=== PATIENT | female | born 1970 | race African-American/Black ===

== ENCOUNTER 2016-07-01 02:17 | Inpatient (IN) | payer MEDICAID ==
[~2016-07-01] VITALS: Ht 160 cm; Wt 91.6 kg
[~2016-07-01 02:17] MED LIST: AMIT25TA9 PO; AMLO2.5T45 PO; ASPI-1035 PO; ATOR10TA69 PO; COLC0.6T66 PO; COR12 PO; DIGO250T81 PO; ENTRESTO PO; FURO80TA3 PO; ISOS30TA6 PO; LEVO125T8 PO; LOSA50TA20 PO; METF500T4 PO; POTA20TA82 PO; SPIR25TA4 PO
[2016-07-01] MEDS ORDERED: FUROSEMIDE 40MG/4ML VIAL IV STA (03:14)
[2016-07-01 03:34] LABS: BASOPHILS % 1.7 % (0.0-2.0); DIFFERENTIAL COMMENT 0; EOSINOPHILS % 7.2 % (0.0-5.0); HEMATOCRIT. 42.1 % (36.0-48.0); HEMOGLOBIN. 13.6 g/dL (12.0-16.0); LYMPHOCYTES % 16.7 % (20.0-50.0); MEAN CORPUSCULAR HEMOGLOBIN 27.2 pg (28.0-32.0); MEAN CORPUSCULAR HGB CONC 32.3 g/dL (31.0-37.0); MEAN CORPUSCULAR VOLUME 84.4 fL (81.0-99.0); MEAN PLATELET VOLUME 9.8 fl (7.4-10.4); MONOCYTES % 7.2 % (2.0-8.0); NEUTROPHILS % 67.2 % (40.0-76.0); PLATELET 153 x1000/uL (130-400); RED BLOOD CELL COUNT 4.99 mill/uL (4.2-5.4); RED CELL DISTRIBUTION WIDTH 17.9 % (11.6-14.6); WHITE BLOOD COUNT 3.8 x1000/uL (4.5-11.0)
[2016-07-01] MEDS ORDERED: MORPHINE SULFATE 4 MG/ML CPJ (NOT FOR IM USE) IV ONE (03:45)
[2016-07-01] MEDS ORDERED: ONDANSETRON HCL 4MG/2ML VIAL IV ONE (03:45)
[2016-07-01 03:46] LABS: ALANINE AMINOTRANSFERASE 28 IU/L (13-61); ALBUMIN 3.6 g/dL (3.4-5.0); ANION GAP 10; CALCIUM 9.2 mg/dL (8.5-10.1); CARBON DIOXIDE 32 mEq/L (21-32); CHLORIDE 103 mEq/L (98-107); INDEX HEMOLYSI 1 (1-3); INDEX ICTERIC 1 (1-4); INDEX LIPEMIC 1 (1-3); INR 1.1; NT PRO B-TYPE NATRIURETIC PEP 5008 pg/mL (5-125); PARTIAL THROMBOPLASTIN TIME 27.4 sec (24.0-34.0); PROTHROMBIN TIME 11.6 sec; UREA NITROGEN BLOOD 25 mg/dL (7-21); eGFR 49 mL/min (>60)
[2016-07-01] MEDS ORDERED: DIPHENHYDRAMINE 50MG/ML VIAL IV ONE (05:30)
[2016-07-01 08:38] VITALS: BP 145/89
[2016-07-01] MEDS ORDERED: GLIP10TA10 PO (09:47)
[2016-07-01] MEDS ORDERED: ELIQUIS PO (09:47)
[2016-07-01] MEDS ORDERED: ALLO300T2 PO (09:47)
[2016-07-01] MEDS ORDERED: AMIODARONE PO (09:47)
[2016-07-01] MEDS ORDERED: DIGO125T82 PO (09:47)
[2016-07-01] MEDS ORDERED: DILT120C2 PO (09:47)
[2016-07-01] MEDS ORDERED: DOCUSATE SODIUM 100MG CAPSULE PO PRN (10:30)
[2016-07-01] MEDS ORDERED: GUAIFENESIN 200MG/10ML SUGAR FREE UDC PO PRN (10:30)
[2016-07-01] MEDS ORDERED: NA PHOS,M-B/NA PHOS,DI-BA ENEMA 118ML PR PRN (10:30)
[2016-07-01] MEDS ORDERED: MAGNESIUM/ALUMINUM HYDROXIDE/SIMETHICONE 30ML UDC PO PRN (10:30)
[2016-07-01] MEDS ORDERED: ACETAMINOPHEN 325MG TABLET PO PRN (10:30)
[2016-07-01] MEDS ORDERED: ENOXAPARIN 40MG/0.4ML SYR SUBCUT SCH (10:30)
[2016-07-01] MEDS ORDERED: CLONIDINE 0.1MG TABLET PO PRN (10:30)
[2016-07-01] MEDS ORDERED: ENOXAPARIN 30MG/0.3ML SYR SUBCUT SCH (11:00)
[2016-07-01] MEDS ORDERED: METF500T4 PO (11:02)
[2016-07-01 12:00] VITALS: BP 127/83
[2016-07-01] MEDS: INSULIN LISPRO 100 UNITS/ML SUBCUT SCH ×3 (12:12→21:00)
[2016-07-01] MEDS: BLOOD SUGAR DIAGNOSTIC STRIP TEST SCH ×3 (12:12→21:00)
[2016-07-01] MEDS: ASPIRIN 81MG EC TABLET PO SCH (12:29)
[2016-07-01] MEDS: CARVEDILOL 12.5MG TABLET PO SCH ×2 (12:29→23:30)
[2016-07-01] MEDS: HYDROMORPHONE HCL/PF 2MG/ML CPJ IV PRN ×2 (12:37→21:20)
[2016-07-01] MEDS: GLIPIZIDE 10MG TABLET PO SCH (13:00)
[2016-07-01] MEDS: AMIODARONE HCL 200 MG TABLET PO SCH ×2 (13:57→21:08)
[2016-07-01 16:00] VITALS: BP 120/81
[2016-07-01 16:04] LABS: ANION GAP 13; CALCIUM 9.4 mg/dL (8.5-10.1); CARBON DIOXIDE 29 mEq/L (21-32); CHLORIDE 101 mEq/L (98-107); INDEX HEMOLYSI 1 (1-3); INDEX ICTERIC 1 (1-4); INDEX LIPEMIC 1 (1-3); TROPONIN I < 0.02 ng/mL (0.00-0.04); UREA NITROGEN BLOOD 26 mg/dL (7-21); eGFR 53 mL/min (>60)
[2016-07-01] MEDS ORDERED: ENTRESTO PO SCH (17:00)
[2016-07-01] MEDS: IPRATROPIUM/ALBUTEROL 0.5-3(2.5)MG/3ML NEB INH SCH ×2 (17:09→20:55)
[2016-07-01] MEDS: ALLOPURINOL 300 MG TABLET PO SCH (17:44)
[2016-07-01] MEDS: DIGOXIN 125MCG TABLET PO SCH (17:44)
[2016-07-01] MEDS: APIXABAN 2.5 MG TABLET PO SCH (17:45)
[2016-07-01] MEDS: METFORMIN HCL 500MG TABLET PO SCH (17:45)
[2016-07-01] MEDS: FUROSEMIDE 80MG TABLET PO SCH (17:45)
[2016-07-01 20:00] VITALS: BP 108/65
[2016-07-01] MEDS: LOSARTAN POTASSIUM 50 MG TABLET PO SCH (21:00)
[2016-07-01] MEDS: DIPHENHYDRAMINE 50MG/ML VIAL IV PRN (23:03)
[2016-07-02 00:01] VITALS: BP 105/60
[2016-07-02] MEDS: IPRATROPIUM/ALBUTEROL 0.5-3(2.5)MG/3ML NEB INH SCH ×4 (02:22→20:38)
[2016-07-02 04:00] VITALS: BP 109/73
[2016-07-02] MEDS: DIPHENHYDRAMINE 50MG/ML VIAL IV PRN (05:51)
[2016-07-02] MEDS: HYDROMORPHONE HCL/PF 2MG/ML CPJ IV PRN (05:52)
[2016-07-02 07:02] LABS: BASOPHILS % 1.5 % (0.0-2.0); DIFFERENTIAL COMMENT 0; EOSINOPHILS % 6.4 % (0.0-5.0); HEMATOCRIT. 41.2 % (36.0-48.0); HEMOGLOBIN. 13.2 g/dL (12.0-16.0); LYMPHOCYTES % 21.2 % (20.0-50.0); MEAN CORPUSCULAR HEMOGLOBIN 27.2 pg (28.0-32.0); MEAN CORPUSCULAR VOLUME 84.8 fL (81.0-99.0); MEAN PLATELET VOLUME 10.8 fl (7.4-10.4); MONOCYTES % 9.2 % (2.0-8.0); NEUTROPHILS % 61.7 % (40.0-76.0); PLATELET 147 x1000/uL (130-400); RED BLOOD CELL COUNT 4.86 mill/uL (4.2-5.4); RED CELL DISTRIBUTION WIDTH 18.2 % (11.6-14.6); WHITE BLOOD COUNT 4.4 x1000/uL (4.5-11.0)
[2016-07-02 07:24] LABS: CHLORIDE 100 mEq/L (98-107); INDEX HEMOLYSI 1 (1-3); INDEX ICTERIC 1 (1-4); INDEX LIPEMIC 1 (1-3)
[2016-07-02 07:40] LABS: ALANINE AMINOTRANSFERASE 24 IU/L (13-61); ALBUMIN 3.3 g/dL (3.4-5.0); ANION GAP 17; CALCIUM 8.8 mg/dL (8.5-10.1); CARBON DIOXIDE 23 mEq/L (21-32); HDL CHOLESTEROL 50 mg/dL (40-59); LDL CHOLESTEROL 74 mg/dL (5-100); T4 FREE 1.37 ng/dL (0.76-1.46); TRIGLYCERIDE 138 mg/dL (0-150); UREA NITROGEN BLOOD 34 mg/dL (7-21); eGFR 36 mL/min (>60)
[2016-07-02 08:00] VITALS: BP 115/84
[2016-07-02] MEDS: BLOOD SUGAR DIAGNOSTIC STRIP TEST SCH ×4 (08:05→21:26)
[2016-07-02] MEDS: INSULIN LISPRO 100 UNITS/ML SUBCUT SCH ×4 (08:10→21:00)
[2016-07-02] MEDS: APIXABAN 2.5 MG TABLET PO SCH (09:16)
[2016-07-02] MEDS: AMIODARONE HCL 200 MG TABLET PO SCH ×2 (09:16→21:00)
[2016-07-02] MEDS: ALLOPURINOL 300 MG TABLET PO SCH ×2 (09:16→17:43)
[2016-07-02] MEDS: ASPIRIN 81MG EC TABLET PO SCH (09:16)
[2016-07-02] MEDS: METFORMIN HCL 500MG TABLET PO SCH (09:16)
[2016-07-02] MEDS: LOSARTAN POTASSIUM 50 MG TABLET PO SCH ×2 (09:17→21:00)
[2016-07-02] MEDS: FUROSEMIDE 80MG TABLET PO SCH ×2 (09:17→17:43)
[2016-07-02] MEDS: DILTIAZEM HCL 120MG CAPSULE CD 24HR PO SCH (09:18)
[2016-07-02] MEDS: GLIPIZIDE 10MG TABLET PO SCH (09:18)
[2016-07-02] MEDS: COLCHICINE 0.6MG TABLET PO SCH (09:19)
[2016-07-02] MEDS: LEVOTHYROXINE SODIUM 125MCG TABLET PO SCH (09:19)
[2016-07-02 12:00] VITALS: BP 124/79
[2016-07-02] MEDS: CARVEDILOL 12.5MG TABLET PO SCH ×2 (12:42→22:48)
[2016-07-02] MEDS: DEXTROSE 50% WATER 50ML SYRINGE IV PRN (15:32)
[2016-07-02 15:41] LABS: CLARITY URINE CLEAR (CLEAR); COLOR URINE YELLOW (YELLOW); GLUCOSE URINE NEGATIVE (NEGATIVE); KETONES URINE NEGATIVE (NEGATIVE); LEUKOCYTE ESTERASE URINE NEGATIVE (NEGATIVE); NITRITE URINE NEGATIVE (NEGATIVE); OCCULT BLOOD URINE NEGATIVE (NEGATIVE); PROTEIN URINE 1+ (NEGATIVE); SPECIFIC GRAVITY URINE 1.015 (1.005-1.030); UROBILINOGEN URINE 0.2 E.U./dL (0.2-1.0)
[2016-07-02 16:00] VITALS: BP 104/62
[2016-07-02] MEDS: DIGOXIN 125MCG TABLET PO SCH (17:43)
[2016-07-02 18:42] LABS: BACTERIA URINE 2+
[2016-07-02 18:43] LABS: RBC URINE 0-2 /hpf (0-2); SQUAMOUS EPITHELIAL CELL URINE FEW /lpf (RARE/1+); WBC URINE 0-2 /hpf (0-2)
[2016-07-02 20:00] VITALS: BP 107/60
[2016-07-02] MEDS: APIXABAN 5 MG TABLET PO SCH (21:26)
[2016-07-03] VITALS: BP 118/79
[2016-07-03] MEDS: IPRATROPIUM/ALBUTEROL 0.5-3(2.5)MG/3ML NEB INH SCH ×4 (01:05→20:26)
[2016-07-03] MEDS: LORAZEPAM 2MG/ML CPJ IV PRN ×2 (02:57→20:39)
[2016-07-03 04:00] VITALS: BP 107/66
[2016-07-03] MEDS: DEXTROSE 50% WATER 50ML SYRINGE IV PRN (05:38)
[2016-07-03] MEDS: BLOOD SUGAR DIAGNOSTIC STRIP TEST SCH ×4 (06:08→20:46)
[2016-07-03] MEDS: GLIPIZIDE 10MG TABLET PO SCH (07:40)
[2016-07-03] MEDS: INSULIN LISPRO 100 UNITS/ML SUBCUT SCH ×4 (07:59→20:46)
[2016-07-03 08:00] VITALS: BP 100/57
[2016-07-03] MEDS: DILTIAZEM HCL 120MG CAPSULE CD 24HR PO SCH (09:00)
[2016-07-03] MEDS: LOSARTAN POTASSIUM 50 MG TABLET PO SCH ×2 (09:00→20:38)
[2016-07-03] MEDS: ALLOPURINOL 300 MG TABLET PO SCH ×2 (09:08→18:29)
[2016-07-03] MEDS: COLCHICINE 0.6MG TABLET PO SCH (09:08)
[2016-07-03] MEDS: FUROSEMIDE 80MG TABLET PO SCH ×2 (09:09→18:29)
[2016-07-03] MEDS: LEVOTHYROXINE SODIUM 125MCG TABLET PO SCH (09:09)
[2016-07-03] MEDS: AMIODARONE HCL 200 MG TABLET PO SCH ×2 (09:09→20:37)
[2016-07-03] MEDS: ASPIRIN 81MG EC TABLET PO SCH (09:09)
[2016-07-03] MEDS: APIXABAN 5 MG TABLET PO SCH ×2 (09:09→20:37)
[2016-07-03] MEDS: HYDROMORPHONE HCL/PF 2MG/ML CPJ IV PRN (10:14)
[2016-07-03 10:50] LABS: BASOPHILS % 1.2 % (0.0-2.0); EOSINOPHILS % 6.7 % (0.0-5.0); HEMOGLOBIN. 13.2 g/dL (12.0-16.0); LYMPHOCYTES % 18.7 % (20.0-50.0); MEAN CORPUSCULAR HEMOGLOBIN 27.2 pg (28.0-32.0); MEAN CORPUSCULAR HGB CONC 32.1 g/dL (31.0-37.0); MEAN CORPUSCULAR VOLUME 84.8 fL (81.0-99.0); MEAN PLATELET VOLUME 11.2 fl (7.4-10.4); MONOCYTES % 8.2 % (2.0-8.0); NEUTROPHILS % 65.2 % (40.0-76.0); PLATELET 143 x1000/uL (130-400); RED BLOOD CELL COUNT 4.84 mill/uL (4.2-5.4); RED CELL DISTRIBUTION WIDTH 18.1 % (11.6-14.6); WHITE BLOOD COUNT 3.3 x1000/uL (4.5-11.0)
[2016-07-03 10:52] LABS: DIFFERENTIAL COMMENT 1
[2016-07-03 11:00] LABS: ADD RBC MORPHOLOGY YES
[2016-07-03 11:55] LABS: ANISOCYTOSIS 1+
[2016-07-03 12:00] VITALS: BP 132/82
[2016-07-03] MEDS: CARVEDILOL 12.5MG TABLET PO SCH ×2 (12:14→23:30)
[2016-07-03 12:32] LABS: CALCIUM 8.9 mg/dL (8.5-10.1)
[2016-07-03 16:00] VITALS: BP 100/62
[2016-07-03] MEDS: DIGOXIN 125MCG TABLET PO SCH (18:29)
[2016-07-03 20:00] VITALS: BP 134/92
[2016-07-04] VITALS: BP 123/69
[2016-07-04] MEDS: HYDROMORPHONE HCL/PF 2MG/ML CPJ IV PRN ×3 (00:42→17:14)
[2016-07-04] MEDS: DIPHENHYDRAMINE 50MG/ML VIAL IV PRN ×3 (01:30→19:01)
[2016-07-04] MEDS: IPRATROPIUM/ALBUTEROL 0.5-3(2.5)MG/3ML NEB INH SCH ×3 (01:45→22:20)
[2016-07-04 04:00] VITALS: BP 110/72
[2016-07-04 05:52] LABS: BASOPHILS % 0.3 % (0.0-2.0); DIFFERENTIAL COMMENT 0; EOSINOPHILS % 8.8 % (0.0-5.0); HEMATOCRIT. 38.5 % (36.0-48.0); HEMOGLOBIN. 12.5 g/dL (12.0-16.0); LYMPHOCYTES % 18.6 % (20.0-50.0); MEAN CORPUSCULAR HEMOGLOBIN 27.1 pg (28.0-32.0); MEAN CORPUSCULAR HGB CONC 32.5 g/dL (31.0-37.0); MEAN CORPUSCULAR VOLUME 83.4 fL (81.0-99.0); MEAN PLATELET VOLUME 10.7 fl (7.4-10.4); NEUTROPHILS % 62.3 % (40.0-76.0); PLATELET 159 x1000/uL (130-400); RED BLOOD CELL COUNT 4.62 mill/uL (4.2-5.4); RED CELL DISTRIBUTION WIDTH 17.6 % (11.6-14.6); WHITE BLOOD COUNT 3.4 x1000/uL (4.5-11.0)
[2016-07-04] MEDS: BLOOD SUGAR DIAGNOSTIC STRIP TEST SCH ×4 (06:11→21:39)
[2016-07-04] MEDS: GLIPIZIDE 10MG TABLET PO SCH (07:40)
[2016-07-04 08:00] VITALS: BP 113/91
[2016-07-04] MEDS: INSULIN LISPRO 100 UNITS/ML SUBCUT SCH ×4 (08:10→21:00)
[2016-07-04] MEDS: AMIODARONE HCL 200 MG TABLET PO SCH ×2 (09:19→21:34)
[2016-07-04] MEDS: ALLOPURINOL 300 MG TABLET PO SCH ×2 (09:20→17:33)
[2016-07-04] MEDS: APIXABAN 5 MG TABLET PO SCH ×2 (09:20→21:32)
[2016-07-04] MEDS: FUROSEMIDE 80MG TABLET PO SCH (09:20)
[2016-07-04] MEDS: COLCHICINE 0.6MG TABLET PO SCH (09:20)
[2016-07-04] MEDS: LEVOTHYROXINE SODIUM 125MCG TABLET PO SCH (09:21)
[2016-07-04] MEDS: DILTIAZEM HCL 120MG CAPSULE CD 24HR PO SCH (09:21)
[2016-07-04] MEDS: ASPIRIN 81MG EC TABLET PO SCH (09:22)
[2016-07-04] MEDS: LOSARTAN POTASSIUM 50 MG TABLET PO SCH ×2 (09:23→21:32)
[2016-07-04 12:00] VITALS: BP 113/90
[2016-07-04] MEDS: CARVEDILOL 12.5MG TABLET PO SCH ×2 (13:10→23:21)
[2016-07-04 16:00] VITALS: BP 98/67
[2016-07-04] MEDS ORDERED: FUROSEMIDE 40MG/4ML VIAL IVP SCH (17:00)
[2016-07-04] MEDS: METOLAZONE 2.5MG TABLET PO SCH ×2 (17:00→17:12)
[2016-07-04] MEDS: DIGOXIN 125MCG TABLET PO SCH (17:12)
[2016-07-04 20:00] VITALS: BP 137/90
[2016-07-04] MEDS: LORAZEPAM 2MG/ML CPJ IV PRN (23:26)
[2016-07-05] VITALS: BP 119/78
[2016-07-05] MEDS: IPRATROPIUM/ALBUTEROL 0.5-3(2.5)MG/3ML NEB INH SCH ×2 (01:31→19:40)
[2016-07-05 04:00] VITALS: BP 104/61
[2016-07-05] MEDS: BLOOD SUGAR DIAGNOSTIC STRIP TEST SCH ×4 (05:53→20:02)
[2016-07-05] MEDS: HYDROMORPHONE HCL/PF 2MG/ML CPJ IV PRN ×3 (06:20→19:17)
[2016-07-05 06:45] LABS: CALCIUM 9.1 mg/dL (8.5-10.1); MAGNESIUM 2.2 mg/dL (1.8-2.4)
[2016-07-05 06:50] LABS: BASOPHILS % 1.8 % (0.0-2.0); EOSINOPHILS % 9.6 % (0.0-5.0); HEMATOCRIT. 39.9 % (36.0-48.0); HEMOGLOBIN. 12.8 g/dL (12.0-16.0); LYMPHOCYTES % 17.1 % (20.0-50.0); MEAN CORPUSCULAR HEMOGLOBIN 27.3 pg (28.0-32.0); MEAN CORPUSCULAR HGB CONC 32.1 g/dL (31.0-37.0); MEAN CORPUSCULAR VOLUME 84.9 fL (81.0-99.0); MEAN PLATELET VOLUME 10.9 fl (7.4-10.4); MONOCYTES % 12.4 % (2.0-8.0); NEUTROPHILS % 59.1 % (40.0-76.0); PLATELET 153 x1000/uL (130-400); RED CELL DISTRIBUTION WIDTH 18.6 % (11.6-14.6); WHITE BLOOD COUNT 3.6 x1000/uL (4.5-11.0)
[2016-07-05 08:00] VITALS: BP 116/78
[2016-07-05] MEDS: INSULIN LISPRO 100 UNITS/ML SUBCUT SCH ×4 (08:10→20:02)
[2016-07-05] MEDS: LEVOTHYROXINE SODIUM 125MCG TABLET PO SCH (09:00)
[2016-07-05] MEDS: FUROSEMIDE 40MG/4ML VIAL IVP SCH (09:04)
[2016-07-05] MEDS: AMIODARONE HCL 200 MG TABLET PO SCH ×2 (09:05→20:13)
[2016-07-05] MEDS: DILTIAZEM HCL 120MG CAPSULE CD 24HR PO SCH (09:05)
[2016-07-05] MEDS: GLIPIZIDE 10MG TABLET PO SCH (09:05)
[2016-07-05] MEDS: APIXABAN 5 MG TABLET PO SCH ×2 (09:05→20:12)
[2016-07-05] MEDS: ALLOPURINOL 300 MG TABLET PO SCH ×2 (09:05→17:07)
[2016-07-05] MEDS: LOSARTAN POTASSIUM 50 MG TABLET PO SCH ×2 (09:05→20:05)
[2016-07-05] MEDS: METOLAZONE 2.5MG TABLET PO SCH ×2 (09:05→17:07)
[2016-07-05] MEDS: ASPIRIN 81MG EC TABLET PO SCH (09:05)
[2016-07-05 09:09] LABS: COMPLEMENT C3 166 mg/dL (82-167); COMPLEMENT C4 33 mg/dL (14-44)
[2016-07-05] MEDS: CARVEDILOL 12.5MG TABLET PO SCH ×2 (11:58→22:51)
[2016-07-05 12:00] VITALS: BP 116/70
[2016-07-05 13:12] LABS: ATYPICAL P-ANCA <1:20 titer (Neg:<1:20); CYTOPLASMIC C-ANCA <1:20 titer (Neg:<1:20); PERINUCLEAR P-ANCA <1:20 titer (Neg:<1:20)
[2016-07-05] MEDS: DIPHENHYDRAMINE 50MG/ML VIAL IV PRN (14:11)
[2016-07-05 16:00] VITALS: BP 101/61
[2016-07-05] MEDS: DIGOXIN 125MCG TABLET PO SCH (17:07)
[2016-07-05 17:21] LABS: ANTI-NUCLEAR ANTIBODIES DIRECT Negative (Negative)
[2016-07-05 20:00] VITALS: BP 119/68
[2016-07-06] VITALS: BP 130/87
[2016-07-06] MEDS: IPRATROPIUM/ALBUTEROL 0.5-3(2.5)MG/3ML NEB INH SCH ×3 (01:45→20:40)
[2016-07-06] MEDS: HYDROMORPHONE HCL/PF 2MG/ML CPJ IV PRN ×3 (01:46→17:49)
[2016-07-06 04:00] VITALS: BP 107/66
[2016-07-06] MEDS: DIPHENHYDRAMINE 50MG/ML VIAL IV PRN ×3 (04:43→19:42)
[2016-07-06 07:32] LABS: BASOPHILS % 1.5 % (0.0-2.0); DIFFERENTIAL COMMENT 0; EOSINOPHILS % 9.5 % (0.0-5.0); HEMATOCRIT. 38.9 % (36.0-48.0); HEMOGLOBIN. 12.6 g/dL (12.0-16.0); LYMPHOCYTES % 17.6 % (20.0-50.0); MEAN CORPUSCULAR HEMOGLOBIN 27.3 pg (28.0-32.0); MEAN CORPUSCULAR HGB CONC 32.3 g/dL (31.0-37.0); MEAN CORPUSCULAR VOLUME 84.6 fL (81.0-99.0); MEAN PLATELET VOLUME 10.6 fl (7.4-10.4); MONOCYTES % 11.6 % (2.0-8.0); NEUTROPHILS % 59.8 % (40.0-76.0); PLATELET 152 x1000/uL (130-400); RED CELL DISTRIBUTION WIDTH 18.1 % (11.6-14.6); WHITE BLOOD COUNT 3.6 x1000/uL (4.5-11.0)
[2016-07-06] MEDS: BLOOD SUGAR DIAGNOSTIC STRIP TEST SCH ×4 (07:40→21:16)
[2016-07-06] MEDS: INSULIN LISPRO 100 UNITS/ML SUBCUT SCH ×4 (07:50→21:00)
[2016-07-06 08:00] VITALS: BP 124/82
[2016-07-06 08:22] LABS: CALCIUM 9.1 mg/dL (8.5-10.1); MAGNESIUM 2.3 mg/dL (1.8-2.4)
[2016-07-06 08:29] LABS: DIGOXIN 0.8 ng/mL (0.9-2.0)
[2016-07-06] MEDS: LEVOTHYROXINE SODIUM 125MCG TABLET PO SCH (08:33)
[2016-07-06] MEDS: APIXABAN 5 MG TABLET PO SCH ×2 (08:33→21:14)
[2016-07-06] MEDS: ALLOPURINOL 300 MG TABLET PO SCH ×2 (08:33→17:24)
[2016-07-06] MEDS: AMIODARONE HCL 200 MG TABLET PO SCH ×2 (08:33→21:00)
[2016-07-06] MEDS: LOSARTAN POTASSIUM 50 MG TABLET PO SCH ×2 (08:33→21:00)
[2016-07-06] MEDS: FUROSEMIDE 40MG/4ML VIAL IVP SCH (08:33)
[2016-07-06] MEDS: DILTIAZEM HCL 120MG CAPSULE CD 24HR PO SCH (08:34)
[2016-07-06] MEDS: METOLAZONE 2.5MG TABLET PO SCH ×2 (08:34→17:24)
[2016-07-06] MEDS: ASPIRIN 81MG EC TABLET PO SCH (08:34)
[2016-07-06] MEDS: GLIPIZIDE 10MG TABLET PO SCH (08:34)
[2016-07-06] MEDS: CARVEDILOL 12.5MG TABLET PO SCH ×2 (11:27→23:30)
[2016-07-06 12:00] VITALS: BP 129/85
[2016-07-06 13:18] LABS: ANTI-MYELOPEROXIDASE AB < 9.0 U/mL (0.0-9.0); ANTI-PROTEINASE 3 ABS < 3.5 U/mL (0.0-3.5)
[2016-07-06 16:00] VITALS: BP 128/79
[2016-07-06] MEDS: DIGOXIN 125MCG TABLET PO SCH (17:24)
[2016-07-06] MEDS: METFORMIN HCL 500MG TABLET PO SCH (17:24)
[2016-07-06 20:00] VITALS: BP 112/66
[2016-07-06] MEDS: FUROSEMIDE 20MG TABLET PO SCH (21:14)
[2016-07-07 00:11] VITALS: BP 119/66
[2016-07-07] MEDS: IPRATROPIUM/ALBUTEROL 0.5-3(2.5)MG/3ML NEB INH SCH ×2 (02:12→07:31)
[2016-07-07 04:00] VITALS: BP 131/78
[2016-07-07] MEDS: HYDROMORPHONE HCL/PF 2MG/ML CPJ IV PRN (05:13)
[2016-07-07] MEDS: DIPHENHYDRAMINE 50MG/ML VIAL IV PRN (05:14)
[2016-07-07 06:35] LABS: BASOPHILS % 1.3 % (0.0-2.0); EOSINOPHILS % 7.9 % (0.0-5.0); HEMATOCRIT. 38.4 % (36.0-48.0); HEMOGLOBIN. 12.5 g/dL (12.0-16.0); LYMPHOCYTES % 16.1 % (20.0-50.0); MEAN CORPUSCULAR HEMOGLOBIN 27.5 pg (28.0-32.0); MEAN CORPUSCULAR HGB CONC 32.5 g/dL (31.0-37.0); MEAN CORPUSCULAR VOLUME 84.6 fL (81.0-99.0); MONOCYTES % 11.7 % (2.0-8.0); PLATELET 145 x1000/uL (130-400); RED BLOOD CELL COUNT 4.54 mill/uL (4.2-5.4); RED CELL DISTRIBUTION WIDTH 18.4 % (11.6-14.6); WHITE BLOOD COUNT 4.6 x1000/uL (4.5-11.0)
[2016-07-07 06:59] LABS: CALCIUM 9.1 mg/dL (8.5-10.1)
[2016-07-07] MEDS: BLOOD SUGAR DIAGNOSTIC STRIP TEST SCH (07:40)
[2016-07-07 08:00] VITALS: BP 107/70
[2016-07-07] MEDS: INSULIN LISPRO 100 UNITS/ML SUBCUT SCH (08:10)
[2016-07-07] MEDS: METOLAZONE 2.5MG TABLET PO SCH (08:32)
[2016-07-07] MEDS: METFORMIN HCL 500MG TABLET PO SCH (08:33)
[2016-07-07] MEDS: AMIODARONE HCL 200 MG TABLET PO SCH (08:33)
[2016-07-07] MEDS: LEVOTHYROXINE SODIUM 125MCG TABLET PO SCH (08:33)
[2016-07-07] MEDS: ALLOPURINOL 300 MG TABLET PO SCH (08:33)
[2016-07-07] MEDS: APIXABAN 5 MG TABLET PO SCH (08:33)
[2016-07-07] MEDS: FUROSEMIDE 20MG TABLET PO SCH (08:33)
[2016-07-07] MEDS: ASPIRIN 81MG EC TABLET PO SCH (08:34)
[2016-07-07] MEDS: GLIPIZIDE 10MG TABLET PO SCH (08:34)
[2016-07-07] MEDS: LOSARTAN POTASSIUM 50 MG TABLET PO SCH (09:00)
[2016-07-07] MEDS: DILTIAZEM HCL 120MG CAPSULE CD 24HR PO SCH (09:00)
[2016-07-07 11:10] VITALS: BP 107/70
[2016-07-07 12:00] VITALS: BP 108/67
== END 2016-07-07 13:05 | disposition home or self-care (01) | DRG 194 ==
LOC: ER 02:17 → 7WST 05:37
PROVIDERS: ADMIT Internal Medicine; ATTEND Internal Medicine
DX: I13.0 Hypertensive heart and chronic kidney disease with heart failure and stage 1 through stage 4 chronic kidney disease, or unspecified chronic kidney disease (principal); J96.00 Acute respiratory failure, unspecified whether with hypoxia or hypercapnia; N17.9 Acute kidney failure, unspecified; E46 Unspecified protein-calorie malnutrition; I42.0 Dilated cardiomyopathy; I48.2 Chronic atrial fibrillation; I50.23 Acute on chronic systolic (congestive) heart failure; E11.21 Type 2 diabetes mellitus with diabetic nephropathy; E11.42 Type 2 diabetes mellitus with diabetic polyneuropathy; E11.22 Type 2 diabetes mellitus with diabetic chronic kidney disease; E03.9 Hypothyroidism, unspecified; E78.5 Hyperlipidemia, unspecified; E87.6 Hypokalemia; N18.9 Chronic kidney disease, unspecified; I27.2 Other secondary pulmonary hypertension; M10.9 Gout, unspecified; Z95.810 Presence of automatic (implantable) cardiac defibrillator; Z68.35 Body mass index [BMI] 35.0-35.9, adult; Z79.82 Long term (current) use of aspirin; Z79.01 Long term (current) use of anticoagulants; Z79.899 Other long term (current) drug therapy; Z82.49 Family history of ischemic heart disease and other diseases of the circulatory system
CPT/HCPCS: 36415; 71010; 76770; 80048; 80053; 80061; 80162; 81001; 82962; 83520; 83735; 83880; 84439; 84443; 84484; 85025; 85610; 85730; 86038; 86160; 86256; 93005; 94640; 94664; 96374; 96375; 99285; C1893; J1170; J1200; J1650; J1940; J2060; J2270; J2405; J7620

== ENCOUNTER → 2016-07-18 | Outpatient (CLI) | payer MEDICAID ==
[~2016-07-18] VITALS: Ht 160 cm; Wt 86.2 kg
[~2016-07-18] MED LIST changes: +ALLO300T2 PO; +AMIODARONE PO; -AMIT25TA9 PO; -AMLO2.5T45 PO; -ASPI-1035 PO; -ATOR10TA69 PO; +DIGO125T82 PO; -DIGO250T81 PO; +DILT120C2 PO; +ELIQUIS PO; -ENTRESTO PO; +FENTANYL CITRATE/PF 50MCG/ML 2ML VIAL ONE; +GLIP10TA10 PO; +HYDROMORPHONE HCL/PF 2MG/ML CPJ IV PRN; -ISOS30TA6 PO; +LABETALOL HCL 20MG/4ML CARPUJECT IV PRN; +LIDOCAINE HCL 1% 20ML VIAL (Pyxis) INJ ONE; +MEPERIDINE HCL/PF 25MG/ML CPJ IV PRN; +MIDAZOLAM HCL 2 MG/2 ML VIAL ONE; +ONDANSETRON HCL 4MG/2ML VIAL IV PRN; +PROPOFOL 200MG/20ML VIAL IV ONE; -SPIR25TA4 PO
== END | disposition home or self-care (01) ==
LOC: CARD 09:00
PROVIDERS: ATTEND Internal Medicine Clinical Cardiac Electrophysiology
DX: I48.1 Persistent atrial fibrillation (principal); I42.0 Dilated cardiomyopathy; I50.22 Chronic systolic (congestive) heart failure
CPT/HCPCS: 93005; J2250; J2704; J3010; J3490

== ENCOUNTER 2016-10-21 06:37 | Inpatient (IN) | payer MEDICAID ==
[~2016-10-21] VITALS: Ht 162.6 cm; Wt 102.1 kg
[~2016-10-21 06:37] MED LIST changes: -DIGO125T82 PO; -DILT120C2 PO; -FENTANYL CITRATE/PF 50MCG/ML 2ML VIAL ONE; -HYDROMORPHONE HCL/PF 2MG/ML CPJ IV PRN; -LABETALOL HCL 20MG/4ML CARPUJECT IV PRN; -LIDOCAINE HCL 1% 20ML VIAL (Pyxis) INJ ONE; -MEPERIDINE HCL/PF 25MG/ML CPJ IV PRN; -MIDAZOLAM HCL 2 MG/2 ML VIAL ONE; -ONDANSETRON HCL 4MG/2ML VIAL IV PRN; -PROPOFOL 200MG/20ML VIAL IV ONE
[2016-10-21] MEDS ORDERED: MORPHINE SULFATE 4 MG/ML CPJ (NOT FOR IM USE) IV STA (07:07)
[2016-10-21 07:23] LABS: BASOPHILS % 1.1 % (0.0-2.0); EOSINOPHILS % 3.7 % (0.0-5.0); HEMATOCRIT. 36.1 % (36.0-48.0); HEMOGLOBIN. 11.6 g/dL (12.0-16.0); LYMPHOCYTES % 12.7 % (20.0-50.0); MEAN CORPUSCULAR HEMOGLOBIN 28.3 pg (28.0-32.0); MEAN CORPUSCULAR VOLUME 87.5 fL (81.0-99.0); MEAN PLATELET VOLUME 9.6 fl (7.4-10.4); MONOCYTES % 7.1 % (2.0-8.0); NEUTROPHILS % 75.4 % (40.0-76.0); PLATELET 209 x1000/uL (130-400); RED BLOOD CELL COUNT 4.12 mill/uL (4.2-5.4); RED CELL DISTRIBUTION WIDTH 16.9 % (11.6-14.6)
[2016-10-21 07:30] LABS: INR 1.1; PROTHROMBIN TIME 11.7 sec
[2016-10-21 07:36] LABS: CARBON DIOXIDE 30 mEq/L (21-32); CHLORIDE 101 mEq/L (98-107)
[2016-10-21 07:40] LABS: HCG SCREEN NEGATIVE
[2016-10-21 10:22] LABS: TROPONIN I < 0.02 ng/mL (0.00-0.04)
[2016-10-21] MEDS ORDERED: FUROSEMIDE 40MG/4ML VIAL IVP ONE (11:30)
[2016-10-21 13:15] VITALS: BP 124/78
[2016-10-21 13:55] VITALS: BP 123/92
[2016-10-21] MEDS ORDERED: FUROSEMIDE 40MG/4ML VIAL IVP SCH (14:30)
[2016-10-21] MEDS ORDERED: ACETAMINOPHEN 325MG TABLET PO PRN (14:30)
[2016-10-21] MEDS ORDERED: ONDANSETRON HCL 4MG/2ML VIAL IV PRN (14:30)
[2016-10-21] MEDS: DEXTROSE 50% WATER 50ML SYRINGE IV PRN (15:09)
[2016-10-21 16:05] VITALS: BP 121/87
[2016-10-21] MEDS ORDERED: COLCHICINE 0.6MG TABLET PO NR ×2 (16:30→17:30)
[2016-10-21] MEDS: MORPHINE SULFATE 2 MG/ML CPJ (NOT FOR IM USE) IV PRN (16:49)
[2016-10-21] MEDS: ALLOPURINOL 300 MG TABLET PO SCH (17:00)
[2016-10-21] MEDS: INSULIN LISPRO 100 UNITS/ML SUBCUT SCH ×2 (17:51→21:00)
[2016-10-21] MEDS: BLOOD SUGAR DIAGNOSTIC STRIP TEST SCH ×2 (17:51→21:13)
[2016-10-21] MEDS: AMIODARONE HCL 200 MG TABLET PO SCH (17:59)
[2016-10-21] MEDS: LOSARTAN POTASSIUM 50 MG TABLET PO SCH (18:00)
[2016-10-21] MEDS: APIXABAN 5 MG TABLET PO SCH (18:00)
[2016-10-21 20:00] VITALS: BP 108/62
[2016-10-21] MEDS: CARVEDILOL 12.5MG TABLET PO SCH (21:13)
[2016-10-22] VITALS: BP 111/72
[2016-10-22] MEDS: MORPHINE SULFATE 2 MG/ML CPJ (NOT FOR IM USE) IV PRN ×4 (00:11→20:46)
[2016-10-22] MEDS: BISACODYL 5MG TABLET PO PRN (02:23)
[2016-10-22 04:00] VITALS: BP 94/71
[2016-10-22] MEDS: BLOOD SUGAR DIAGNOSTIC STRIP TEST SCH ×4 (05:51→21:15)
[2016-10-22] MEDS: INSULIN LISPRO 100 UNITS/ML SUBCUT SCH ×4 (05:51→21:00)
[2016-10-22 08:00] VITALS: BP 127/84
[2016-10-22 08:13] LABS: BASOPHILS % 1.2 % (0.0-2.0); HEMATOCRIT. 35.9 % (36.0-48.0); HEMOGLOBIN. 11.6 g/dL (12.0-16.0); LYMPHOCYTES % 11.8 % (20.0-50.0); MEAN CORPUSCULAR HEMOGLOBIN 28.2 pg (28.0-32.0); MEAN CORPUSCULAR VOLUME 87.6 fL (81.0-99.0); MONOCYTES % 9.3 % (2.0-8.0); NEUTROPHILS % 73.7 % (40.0-76.0); PLATELET 202 x1000/uL (130-400); RED CELL DISTRIBUTION WIDTH 16.9 % (11.6-14.6)
[2016-10-22] MEDS: COLCHICINE 0.6MG TABLET PO SCH (08:49)
[2016-10-22] MEDS: LOSARTAN POTASSIUM 50 MG TABLET PO SCH ×2 (08:50→16:46)
[2016-10-22] MEDS: AMIODARONE HCL 200 MG TABLET PO SCH ×2 (08:50→16:54)
[2016-10-22] MEDS: CARVEDILOL 12.5MG TABLET PO SCH ×2 (08:50→21:00)
[2016-10-22] MEDS: APIXABAN 5 MG TABLET PO SCH ×2 (08:51→16:54)
[2016-10-22] MEDS: ALLOPURINOL 300 MG TABLET PO SCH ×2 (08:51→17:00)
[2016-10-22] MEDS: GLIPIZIDE 10MG TABLET PO SCH (08:52)
[2016-10-22] MEDS: LEVOTHYROXINE SODIUM 125MCG TABLET PO SCH (08:52)
[2016-10-22] MEDS ORDERED: COLCHICINE 0.6MG TABLET PO SCH (09:00)
[2016-10-22] MEDS: DIPHENHYDRAMINE 50MG/ML VIAL IV PRN (09:06)
[2016-10-22] MEDS ORDERED: LACTULOSE 20G/30ML UDC PO NR ×2 (09:30→21:30)
[2016-10-22] MEDS ORDERED: DOCUSATE SODIUM 250MG CAPSULE PO PRN (11:15)
[2016-10-22] MEDS ORDERED: HYDROCODONE/ACETAMINOPHEN 5/325MG TABLET PO PRN (11:15)
[2016-10-22 12:03] VITALS: BP 120/83
[2016-10-22 14:58] LABS: HEPATITIS B SURFACE ANTIGEN NEGATIVE
[2016-10-22 15:26] LABS: HEPATITIS B CORE AB IGM NEGATIVE
[2016-10-22 15:28] LABS: HEPATITIS A AB IGM NEGATIVE (NEGATIVE)
[2016-10-22 16:00] VITALS: BP 105/72
[2016-10-22 20:00] VITALS: BP 108/78
[2016-10-23] VITALS (7 sets, daily range): BP systolic 105–127; BP diastolic 76–89
[2016-10-23] MEDS: MORPHINE SULFATE 2 MG/ML CPJ (NOT FOR IM USE) IV PRN ×2 (01:47→18:14)
[2016-10-23] MEDS: DIPHENHYDRAMINE 50MG/ML VIAL IV PRN (01:47)
[2016-10-23] MEDS: BLOOD SUGAR DIAGNOSTIC STRIP TEST SCH ×4 (06:59→21:28)
[2016-10-23] MEDS: INSULIN LISPRO 100 UNITS/ML SUBCUT SCH ×4 (06:59→21:00)
[2016-10-23] MEDS: GLIPIZIDE 10MG TABLET PO SCH (07:40)
[2016-10-23] MEDS: COLCHICINE 0.6MG TABLET PO SCH (08:14)
[2016-10-23] MEDS: LOSARTAN POTASSIUM 50 MG TABLET PO SCH ×2 (08:15→17:03)
[2016-10-23] MEDS: LEVOTHYROXINE SODIUM 125MCG TABLET PO SCH (08:15)
[2016-10-23] MEDS: APIXABAN 5 MG TABLET PO SCH ×2 (08:15→17:03)
[2016-10-23] MEDS: AMIODARONE HCL 200 MG TABLET PO SCH ×2 (08:15→17:03)
[2016-10-23] MEDS: CARVEDILOL 12.5MG TABLET PO SCH ×2 (08:15→21:00)
[2016-10-23] MEDS: ALLOPURINOL 300 MG TABLET PO SCH ×2 (08:16→17:03)
[2016-10-23] MEDS: DEXTROSE 50% WATER 50ML SYRINGE IV PRN ×2 (10:40→16:30)
[2016-10-23] MEDS: FUROSEMIDE 40MG/4ML VIAL IVP SCH (13:16)
[2016-10-23 22:39] LABS: BASOPHILS % 1.4 % (0.0-2.0); EOSINOPHILS % 2.4 % (0.0-5.0); HEMOGLOBIN. 11.6 g/dL (12.0-16.0); LYMPHOCYTES % 13.2 % (20.0-50.0); MEAN CORPUSCULAR VOLUME 87.4 fL (81.0-99.0); MEAN PLATELET VOLUME 10.2 fl (7.4-10.4); MONOCYTES % 8.6 % (2.0-8.0); NEUTROPHILS % 74.4 % (40.0-76.0); PLATELET 218 x1000/uL (130-400); RED BLOOD CELL COUNT 4.12 mill/uL (4.2-5.4); RED CELL DISTRIBUTION WIDTH 16.8 % (11.6-14.6)
[2016-10-24] VITALS: BP 110/73
[2016-10-24] MEDS: BISACODYL 5MG TABLET PO PRN (00:01)
[2016-10-24] MEDS: DIPHENHYDRAMINE 50MG/ML VIAL IV PRN (02:41)
[2016-10-24 04:00] VITALS: BP 114/87
[2016-10-24] MEDS: BLOOD SUGAR DIAGNOSTIC STRIP TEST SCH ×2 (05:35→12:49)
[2016-10-24] MEDS: GLIPIZIDE 10MG TABLET PO SCH (07:40)
[2016-10-24] MEDS: DEXTROSE 50% WATER 50ML SYRINGE IV PRN ×2 (07:50→11:55)
[2016-10-24 07:59] VITALS: BP 125/77
[2016-10-24] MEDS: INSULIN LISPRO 100 UNITS/ML SUBCUT SCH ×2 (08:10→12:49)
[2016-10-24] MEDS: LEVOTHYROXINE SODIUM 125MCG TABLET PO SCH (09:58)
[2016-10-24] MEDS: APIXABAN 5 MG TABLET PO SCH (09:59)
[2016-10-24] MEDS: LOSARTAN POTASSIUM 50 MG TABLET PO SCH (09:59)
[2016-10-24] MEDS: CARVEDILOL 12.5MG TABLET PO SCH (09:59)
[2016-10-24] MEDS: ALLOPURINOL 300 MG TABLET PO SCH (09:59)
[2016-10-24] MEDS: COLCHICINE 0.6MG TABLET PO SCH (10:00)
[2016-10-24] MEDS: FUROSEMIDE 40MG/4ML VIAL IVP SCH (10:00)
[2016-10-24] MEDS: AMIODARONE HCL 200 MG TABLET PO SCH (10:00)
[2016-10-24] MEDS: MORPHINE SULFATE 2 MG/ML CPJ (NOT FOR IM USE) IV PRN ×2 (10:09)
[2016-10-24 12:25] VITALS: BP 96/65
[2016-10-24 14:10] VITALS: BP 100/72
== END 2016-10-24 14:50 | disposition home or self-care (01) | DRG 254 ==
LOC: ER 07:25 → 7WST 11:34 → ENRESERV 11:58
PROVIDERS: ADMIT Internal Medicine; ATTEND Internal Medicine
DX: K59.00 Constipation, unspecified (principal); I50.23 Acute on chronic systolic (congestive) heart failure; N17.9 Acute kidney failure, unspecified; I42.9 Cardiomyopathy, unspecified; R18.8 Other ascites; I48.91 Unspecified atrial fibrillation; Z79.84 Long term (current) use of oral hypoglycemic drugs; E03.9 Hypothyroidism, unspecified; M10.9 Gout, unspecified; I11.0 Hypertensive heart disease with heart failure; E16.2 Hypoglycemia, unspecified; Z82.49 Family history of ischemic heart disease and other diseases of the circulatory system; Z95.810 Presence of automatic (implantable) cardiac defibrillator; Z79.01 Long term (current) use of anticoagulants; Z79.899 Other long term (current) drug therapy; K31.9 Disease of stomach and duodenum, unspecified
CPT/HCPCS: 36415; 71010; 73630; 74176; 76705; 80048; 80053; 80162; 82962; 83690; 83880; 84443; 84484; 84703; 85025; 85610; 86705; 86709; 86803; 87340; 93005; 96374; 96375; 99285; C1893; J1200; J1940; J2270; J2405

== ENCOUNTER 2016-11-29 23:14 | Inpatient (IN) | payer MEDICAID ==
[~2016-11-29] VITALS: Ht 160 cm; Wt 95.3 kg
[~2016-11-29 23:14] MED LIST changes: -METF500T4 PO
[2016-11-30] VITALS (9 sets, daily range): BP systolic 94–123; BP diastolic 55–82
[2016-11-30] MEDS ORDERED: FUROSEMIDE 40MG/4ML VIAL IV ONE (00:45)
[2016-11-30] MEDS ORDERED: ASPIRIN 81MG TABLET PO ONE (00:45)
[2016-11-30 00:55] LABS: BASOPHILS % 1.3 % (0.0-2.0); EOSINOPHILS % 8.9 % (0.0-5.0); HEMATOCRIT. 38.6 % (36.0-48.0); HEMOGLOBIN. 12.3 g/dL (12.0-16.0); LYMPHOCYTES % 12.9 % (20.0-50.0); MEAN CORPUSCULAR VOLUME 84.4 fL (81.0-99.0); MEAN PLATELET VOLUME 9.6 fl (7.4-10.4); MONOCYTES % 6.8 % (2.0-8.0); NEUTROPHILS % 70.1 % (40.0-76.0); PLATELET 204 x1000/uL (130-400); RED BLOOD CELL COUNT 4.57 mill/uL (4.2-5.4); RED CELL DISTRIBUTION WIDTH 16.9 % (11.6-14.6)
[2016-11-30 00:59] LABS: INR 1.2; PROTHROMBIN TIME 12.4 sec (9.4-11.6)
[2016-11-30 01:08] LABS: CARBON DIOXIDE 26 mEq/L (21-32); CHLORIDE 102 mEq/L (98-107); ETHANOL BLOOD < 10 mg/dL; TROPONIN I < 0.02 ng/mL (0.00-0.04)
[2016-11-30] MEDS ORDERED: MORPHINE SULFATE 2 MG/ML CPJ (NOT FOR IM USE) IV ONE (03:00)
[2016-11-30] MEDS ORDERED: MORPHINE SULFATE 4 MG/ML CPJ (NOT FOR IM USE) IV NR (03:16)
[2016-11-30] MEDS: ALLOPURINOL 300 MG TABLET PO SCH (08:52)
[2016-11-30] MEDS: AMIODARONE HCL 200 MG TABLET PO SCH (08:53)
[2016-11-30] MEDS: GLIPIZIDE 10MG TABLET PO SCH (08:53)
[2016-11-30] MEDS: DIPHENHYDRAMINE 50MG CAPSULE PO PRN (08:54)
[2016-11-30] MEDS: CARVEDILOL 12.5MG TABLET PO SCH ×2 (08:56→20:13)
[2016-11-30] MEDS: BLOOD SUGAR DIAGNOSTIC STRIP TEST SCH ×4 (08:56→20:14)
[2016-11-30] MEDS: INSULIN LISPRO 100 UNITS/ML SUBCUT SCH ×4 (09:01→20:14)
[2016-11-30] MEDS: APIXABAN 5 MG TABLET PO SCH ×2 (10:24→16:22)
[2016-11-30] MEDS: FUROSEMIDE 40MG/4ML VIAL IVP SCH (11:32)
[2016-11-30] MEDS: LOSARTAN POTASSIUM 25 MG TABLET PO SCH (12:24)
[2016-11-30] MEDS: MORPHINE SULFATE 4 MG/ML CPJ (NOT FOR IM USE) IV PRN (16:51)
[2016-11-30] MEDS ORDERED: FUROSEMIDE 80MG TABLET PO SCH (17:00)
[2016-12-01] VITALS (13 sets, daily range): BP systolic 97–133; BP diastolic 61–80
[2016-12-01] MEDS: BLOOD SUGAR DIAGNOSTIC STRIP TEST SCH ×5 (00:20→20:56)
[2016-12-01] MEDS: DEXTROSE 50% WATER 50ML SYRINGE IV PRN (00:26)
[2016-12-01] MEDS: MORPHINE SULFATE 4 MG/ML CPJ (NOT FOR IM USE) IV PRN ×2 (00:42→13:36)
[2016-12-01 04:46] LABS: *AMPHETAMINES SCREEN URINE NEGATIVE (NEGATIVE); *COCAINE SCREEN URINE NEGATIVE (NEGATIVE); CANNABINOID URINE SCREEN NEGATIVE (NEGATIVE); METHADONE URINE SCREEN NEGATIVE (NEGATIVE); PHENCYCLIDINE URINE SCREEN NEGATIVE (NEGATIVE)
[2016-12-01 05:05] LABS: *BARBITURATES SCREEN URINE NEGATIVE (NEGATIVE); *BENZODIAZEPINES SCREEN URINE NEGATIVE (NEGATIVE)
[2016-12-01 05:09] LABS: OPIATES URINE SCREEN PRESUMTIVE POSITIVE (NEGATIVE)
[2016-12-01] MEDS: GLIPIZIDE 10MG TABLET PO SCH (06:35)
[2016-12-01] MEDS: INSULIN LISPRO 100 UNITS/ML SUBCUT SCH ×4 (07:20→20:56)
[2016-12-01] MEDS: FUROSEMIDE 40MG/4ML VIAL IVP SCH (08:17)
[2016-12-01] MEDS: ALLOPURINOL 300 MG TABLET PO SCH (08:17)
[2016-12-01] MEDS: APIXABAN 5 MG TABLET PO SCH ×2 (08:18→16:30)
[2016-12-01] MEDS: CARVEDILOL 12.5MG TABLET PO SCH ×2 (08:18→20:56)
[2016-12-01] MEDS: AMIODARONE HCL 200 MG TABLET PO SCH (08:18)
[2016-12-01] MEDS ORDERED: DOBUTAMINE HCL 500 MG in DEXT 5% WATER 210 ML IV SCH (09:30)
[2016-12-01] MEDS ORDERED: DOPAMINE 400MG PREMIX 250 ML IV PRN (09:30)
[2016-12-01] MEDS: LOSARTAN POTASSIUM 25 MG TABLET PO SCH (10:22)
[2016-12-01] MEDS: DOCUSATE SODIUM 250MG CAPSULE PO SCH (10:22)
[2016-12-01 11:16] LABS: BASOPHILS % 1.6 % (0.0-2.0); EOSINOPHILS % 8.5 % (0.0-5.0); HEMATOCRIT. 35.6 % (36.0-48.0); HEMOGLOBIN. 11.4 g/dL (12.0-16.0); LYMPHOCYTES % 12.7 % (20.0-50.0); MEAN CORPUSCULAR HEMOGLOBIN 26.6 pg (28.0-32.0); MEAN CORPUSCULAR VOLUME 83.4 fL (81.0-99.0); MEAN PLATELET VOLUME 10.5 fl (7.4-10.4); MONOCYTES % 10.3 % (2.0-8.0); NEUTROPHILS % 66.9 % (40.0-76.0); PLATELET 185 x1000/uL (130-400); RED BLOOD CELL COUNT 4.27 mill/uL (4.2-5.4); RED CELL DISTRIBUTION WIDTH 16.9 % (11.6-14.6)
[2016-12-01] MEDS: DOBUTAMINE 250MG PREMIX 250 ML IV SCH (12:41)
[2016-12-01 12:46] LABS: HEPATITIS B SURFACE ANTIGEN NEGATIVE
[2016-12-01 13:14] LABS: HEPATITIS B CORE AB IGM NEGATIVE
[2016-12-01] MEDS: DIPHENHYDRAMINE 50MG CAPSULE PO PRN (15:23)
[2016-12-01 15:32] LABS: HEPATITIS A AB IGM NEGATIVE (NEGATIVE)
[2016-12-02] VITALS (18 sets, daily range): BP systolic 92–134; BP diastolic 49–85
[2016-12-02] MEDS: DEXTROSE 50% WATER 50ML SYRINGE IV PRN (00:23)
[2016-12-02] MEDS: MORPHINE SULFATE 4 MG/ML CPJ (NOT FOR IM USE) IV PRN ×2 (00:42→10:59)
[2016-12-02] MEDS: BLOOD SUGAR DIAGNOSTIC STRIP TEST SCH ×4 (06:39→20:48)
[2016-12-02] MEDS: GLIPIZIDE 10MG TABLET PO SCH (06:40)
[2016-12-02] MEDS: DOBUTAMINE 250MG PREMIX 250 ML IV SCH ×3 (06:57→22:19)
[2016-12-02] MEDS: INSULIN LISPRO 100 UNITS/ML SUBCUT SCH (07:20)
[2016-12-02 07:52] LABS: BASOPHILS % 1.2 % (0.0-2.0); HEMATOCRIT. 35.5 % (36.0-48.0); HEMOGLOBIN. 11.4 g/dL (12.0-16.0); LYMPHOCYTES % 13.9 % (20.0-50.0); MEAN CORPUSCULAR HEMOGLOBIN 26.8 pg (28.0-32.0); MEAN CORPUSCULAR VOLUME 83.5 fL (81.0-99.0); MONOCYTES % 8.4 % (2.0-8.0); NEUTROPHILS % 68.5 % (40.0-76.0); PLATELET 185 x1000/uL (130-400); RED BLOOD CELL COUNT 4.25 mill/uL (4.2-5.4); RED CELL DISTRIBUTION WIDTH 17.1 % (11.6-14.6)
[2016-12-02] MEDS: DOCUSATE SODIUM 250MG CAPSULE PO SCH (08:29)
[2016-12-02] MEDS: FUROSEMIDE 40MG/4ML VIAL IVP SCH ×2 (08:29→16:39)
[2016-12-02] MEDS: AMIODARONE HCL 200 MG TABLET PO SCH (08:30)
[2016-12-02] MEDS: LOSARTAN POTASSIUM 25 MG TABLET PO SCH (08:30)
[2016-12-02] MEDS: ALLOPURINOL 300 MG TABLET PO SCH ×2 (08:30→10:22)
[2016-12-02] MEDS: CARVEDILOL 12.5MG TABLET PO SCH ×2 (08:30→20:46)
[2016-12-02] MEDS: APIXABAN 5 MG TABLET PO SCH ×2 (08:30→16:39)
[2016-12-02] MEDS: METOLAZONE 2.5MG TABLET PO SCH (10:49)
[2016-12-02] MEDS: DIPHENHYDRAMINE 50MG CAPSULE PO PRN (13:54)
[2016-12-02] MEDS: DOCUSATE SODIUM 100MG CAPSULE PO SCH (16:38)
[2016-12-02] MEDS ORDERED: OMEPRAZOLE 20MG CAPSULE EXTENDED RELEASE PO NR (20:22)
[2016-12-02] MEDS ORDERED: ONDANSETRON HCL 4MG/2ML VIAL IV PRN (20:30)
[2016-12-02] MEDS ORDERED: LACTULOSE 20G/30ML UDC PO PRN (21:00)
[2016-12-02] MEDS: LEVOTHYROXINE SODIUM 125MCG TABLET PO SCH (23:38)
[2016-12-03] VITALS (17 sets, daily range): BP systolic 91–134; BP diastolic 51–81
[2016-12-03] MEDS: MORPHINE SULFATE 2 MG/ML CPJ (NOT FOR IM USE) IV PRN ×2 (03:06→10:48)
[2016-12-03] MEDS: OMEPRAZOLE 20MG CAPSULE EXTENDED RELEASE PO SCH (06:28)
[2016-12-03] MEDS: DIPHENHYDRAMINE 50MG CAPSULE PO PRN (06:28)
[2016-12-03] MEDS: LEVOTHYROXINE SODIUM 125MCG TABLET PO SCH (06:28)
[2016-12-03] MEDS: BLOOD SUGAR DIAGNOSTIC STRIP TEST SCH ×4 (06:31→20:25)
[2016-12-03 07:59] LABS: BASOPHILS % 1.1 % (0.0-2.0); EOSINOPHILS % 8.3 % (0.0-5.0); HEMATOCRIT. 34.7 % (36.0-48.0); LYMPHOCYTES % 13.6 % (20.0-50.0); MEAN CORPUSCULAR HEMOGLOBIN 26.4 pg (28.0-32.0); MEAN CORPUSCULAR VOLUME 83.2 fL (81.0-99.0); MEAN PLATELET VOLUME 10.7 fl (7.4-10.4); MONOCYTES % 7.5 % (2.0-8.0); NEUTROPHILS % 69.5 % (40.0-76.0); PLATELET 180 x1000/uL (130-400); RED BLOOD CELL COUNT 4.18 mill/uL (4.2-5.4); RED CELL DISTRIBUTION WIDTH 17.3 % (11.6-14.6)
[2016-12-03 08:32] LABS: PREALBUMIN 15.2 mg/dL (20.0-40.0)
[2016-12-03] MEDS: FUROSEMIDE 40MG/4ML VIAL IVP SCH ×2 (10:27→18:00)
[2016-12-03] MEDS: DOBUTAMINE 250MG PREMIX 250 ML IV SCH ×3 (10:28→23:42)
[2016-12-03] MEDS: DOCUSATE SODIUM 100MG CAPSULE PO SCH ×2 (10:28→18:00)
[2016-12-03] MEDS: ALLOPURINOL 300 MG TABLET PO SCH (10:28)
[2016-12-03] MEDS: APIXABAN 5 MG TABLET PO SCH ×2 (10:28→18:01)
[2016-12-03] MEDS: CARVEDILOL 12.5MG TABLET PO SCH ×2 (10:28→20:28)
[2016-12-03] MEDS: LOSARTAN POTASSIUM 25 MG TABLET PO SCH (10:28)
[2016-12-03] MEDS: METOLAZONE 2.5MG TABLET PO SCH (10:29)
[2016-12-03] MEDS: AMIODARONE HCL 200 MG TABLET PO SCH (10:29)
[2016-12-04] VITALS (16 sets, daily range): BP systolic 111–152; BP diastolic 43–82
[2016-12-04] MEDS: MORPHINE SULFATE 2 MG/ML CPJ (NOT FOR IM USE) IV PRN ×4 (00:04→14:48)
[2016-12-04] MEDS: DOBUTAMINE 250MG PREMIX 250 ML IV SCH ×3 (05:06→23:15)
[2016-12-04] MEDS: LEVOTHYROXINE SODIUM 125MCG TABLET PO SCH (06:19)
[2016-12-04] MEDS: OMEPRAZOLE 20MG CAPSULE EXTENDED RELEASE PO SCH (06:20)
[2016-12-04] MEDS: BLOOD SUGAR DIAGNOSTIC STRIP TEST SCH ×4 (06:20→21:22)
[2016-12-04] MEDS: FUROSEMIDE 40MG/4ML VIAL IVP SCH ×2 (07:01→16:37)
[2016-12-04 07:26] LABS: HEMOGLOBIN 10.9 g/dL (12.0-16.0); MEAN CORPUSCULAR HEMOGLOBIN 26.5 pg (28.0-32.0); MEAN CORPUSCULAR VOLUME 82.9 fL (81.0-99.0); PLATELET 164 x1000/uL (130-400); RED BLOOD CELL COUNT 4.11 mill/uL (4.2-5.4); RED CELL DISTRIBUTION WIDTH 17.1 % (11.6-14.6)
[2016-12-04 07:49] LABS: CARBON DIOXIDE 27 mEq/L (21-32); CHLORIDE 98 mEq/L (98-107)
[2016-12-04] MEDS: METOLAZONE 2.5MG TABLET PO SCH (08:29)
[2016-12-04] MEDS: DOCUSATE SODIUM 100MG CAPSULE PO SCH ×2 (08:29→16:28)
[2016-12-04] MEDS: ALLOPURINOL 300 MG TABLET PO SCH (08:29)
[2016-12-04] MEDS: LOSARTAN POTASSIUM 25 MG TABLET PO SCH (08:30)
[2016-12-04] MEDS: CARVEDILOL 12.5MG TABLET PO SCH ×2 (08:30→21:21)
[2016-12-04] MEDS: APIXABAN 5 MG TABLET PO SCH ×2 (08:30→16:37)
[2016-12-04] MEDS: AMIODARONE HCL 200 MG TABLET PO SCH (08:30)
[2016-12-04] MEDS: COLCHICINE 0.6MG TABLET PO SCH ×2 (11:07→21:22)
[2016-12-04] MEDS: MORPHINE SULFATE 4 MG/ML CPJ (NOT FOR IM USE) IV PRN ×2 (16:37→23:14)
[2016-12-05] VITALS (12 sets, daily range): BP systolic 105–140; BP diastolic 55–99
[2016-12-05] MEDS: MORPHINE SULFATE 4 MG/ML CPJ (NOT FOR IM USE) IV PRN ×3 (04:50→14:04)
[2016-12-05] MEDS: DIPHENHYDRAMINE 50MG CAPSULE PO PRN (05:24)
[2016-12-05] MEDS: LEVOTHYROXINE SODIUM 125MCG TABLET PO SCH (06:33)
[2016-12-05] MEDS: OMEPRAZOLE 20MG CAPSULE EXTENDED RELEASE PO SCH (06:34)
[2016-12-05] MEDS: BLOOD SUGAR DIAGNOSTIC STRIP TEST SCH ×4 (06:49→21:17)
[2016-12-05] MEDS: FUROSEMIDE 40MG/4ML VIAL IVP SCH (07:43)
[2016-12-05] MEDS: LOSARTAN POTASSIUM 25 MG TABLET PO SCH (08:15)
[2016-12-05] MEDS: CARVEDILOL 12.5MG TABLET PO SCH ×2 (08:15→21:17)
[2016-12-05] MEDS: AMIODARONE HCL 200 MG TABLET PO SCH (08:15)
[2016-12-05] MEDS: METOLAZONE 2.5MG TABLET PO SCH (08:15)
[2016-12-05] MEDS: DOCUSATE SODIUM 100MG CAPSULE PO SCH ×2 (08:15→16:38)
[2016-12-05] MEDS: COLCHICINE 0.6MG TABLET PO SCH ×2 (08:15→21:16)
[2016-12-05] MEDS: DOBUTAMINE 250MG PREMIX 250 ML IV SCH ×3 (08:15→23:48)
[2016-12-05] MEDS: APIXABAN 5 MG TABLET PO SCH ×2 (08:15→17:15)
[2016-12-05] MEDS: ALLOPURINOL 300 MG TABLET PO SCH (08:16)
[2016-12-05 09:08] LABS: BASOPHILS % 1.6 % (0.0-2.0); EOSINOPHILS % 9.1 % (0.0-5.0); HEMATOCRIT. 35.2 % (36.0-48.0); HEMOGLOBIN. 11.3 g/dL (12.0-16.0); LYMPHOCYTES % 12.8 % (20.0-50.0); MEAN CORPUSCULAR HEMOGLOBIN 26.6 pg (28.0-32.0); MEAN CORPUSCULAR VOLUME 82.9 fL (81.0-99.0); MEAN PLATELET VOLUME 10.6 fl (7.4-10.4); MONOCYTES % 10.4 % (2.0-8.0); NEUTROPHILS % 66.1 % (40.0-76.0); PLATELET 169 x1000/uL (130-400); RED BLOOD CELL COUNT 4.25 mill/uL (4.2-5.4); RED CELL DISTRIBUTION WIDTH 17.2 % (11.6-14.6)
[2016-12-05 09:27] LABS: CARBON DIOXIDE 30 mEq/L (21-32); CHLORIDE 95 mEq/L (98-107)
[2016-12-05] MEDS: FUROSEMIDE 100MG/10ML VIAL IVP SCH (17:15)
[2016-12-06] VITALS (12 sets, daily range): BP systolic 98–138; BP diastolic 65–81
[2016-12-06] MEDS: MORPHINE SULFATE 4 MG/ML CPJ (NOT FOR IM USE) IV PRN ×4 (01:12→20:04)
[2016-12-06] MEDS: DOBUTAMINE 250MG PREMIX 250 ML IV SCH (01:52)
[2016-12-06] MEDS: DIPHENHYDRAMINE 50MG CAPSULE PO PRN (04:13)
[2016-12-06] MEDS: LEVOTHYROXINE SODIUM 125MCG TABLET PO SCH (06:18)
[2016-12-06] MEDS: BLOOD SUGAR DIAGNOSTIC STRIP TEST SCH ×4 (06:18→20:01)
[2016-12-06] MEDS: OMEPRAZOLE 20MG CAPSULE EXTENDED RELEASE PO SCH (06:18)
[2016-12-06 06:52] LABS: BASOPHILS % 1.3 % (0.0-2.0); EOSINOPHILS % 9.1 % (0.0-5.0); HEMATOCRIT. 34.5 % (36.0-48.0); HEMOGLOBIN. 11.1 g/dL (12.0-16.0); LYMPHOCYTES % 13.1 % (20.0-50.0); MEAN CORPUSCULAR HEMOGLOBIN 26.5 pg (28.0-32.0); MEAN CORPUSCULAR VOLUME 82.6 fL (81.0-99.0); MONOCYTES % 12.5 % (2.0-8.0); PLATELET 152 x1000/uL (130-400); RED BLOOD CELL COUNT 4.18 mill/uL (4.2-5.4)
[2016-12-06] MEDS: FUROSEMIDE 100MG/10ML VIAL IVP SCH (07:03)
[2016-12-06 07:07] LABS: CARBON DIOXIDE 32 mEq/L (21-32); CHLORIDE 94 mEq/L (98-107)
[2016-12-06] MEDS ORDERED: POTASSIUM CHLORIDE 20MEQ TABLET SR PO NR (08:30)
[2016-12-06] MEDS: DOCUSATE SODIUM 100MG CAPSULE PO SCH ×2 (08:47→17:43)
[2016-12-06] MEDS: CARVEDILOL 12.5MG TABLET PO SCH ×2 (08:48→20:03)
[2016-12-06] MEDS: AMIODARONE HCL 200 MG TABLET PO SCH (08:48)
[2016-12-06] MEDS: COLCHICINE 0.6MG TABLET PO SCH ×2 (08:48→20:04)
[2016-12-06] MEDS: LOSARTAN POTASSIUM 25 MG TABLET PO SCH (08:48)
[2016-12-06] MEDS: APIXABAN 5 MG TABLET PO SCH ×2 (08:48→17:43)
[2016-12-06] MEDS: METOLAZONE 2.5MG TABLET PO SCH (08:49)
[2016-12-06] MEDS: ALLOPURINOL 300 MG TABLET PO SCH (08:49)
[2016-12-06] MEDS: FUROSEMIDE 40MG/4ML VIAL IV SCH (17:45)
[2016-12-07 00:56] VITALS: BP 108/76
[2016-12-07 02:21] VITALS: BP 108/72
[2016-12-07] MEDS: MORPHINE SULFATE 4 MG/ML CPJ (NOT FOR IM USE) IV PRN ×2 (02:34→08:25)
[2016-12-07 04:29] VITALS: BP 103/68
[2016-12-07] MEDS: BLOOD SUGAR DIAGNOSTIC STRIP TEST SCH ×2 (05:54→11:05)
[2016-12-07] MEDS: LEVOTHYROXINE SODIUM 125MCG TABLET PO SCH (05:57)
[2016-12-07 06:04] VITALS: BP 111/61
[2016-12-07 06:41] LABS: BASOPHILS % 1.9 % (0.0-2.0); EOSINOPHILS % 10.9 % (0.0-5.0); HEMATOCRIT. 34.3 % (36.0-48.0); HEMOGLOBIN. 10.9 g/dL (12.0-16.0); LYMPHOCYTES % 14.8 % (20.0-50.0); MEAN CORPUSCULAR HEMOGLOBIN 26.3 pg (28.0-32.0); MEAN CORPUSCULAR VOLUME 82.7 fL (81.0-99.0); MEAN PLATELET VOLUME 10.1 fl (7.4-10.4); MONOCYTES % 13.1 % (2.0-8.0); NEUTROPHILS % 59.3 % (40.0-76.0); PLATELET 153 x1000/uL (130-400); RED BLOOD CELL COUNT 4.15 mill/uL (4.2-5.4); RED CELL DISTRIBUTION WIDTH 17.1 % (11.6-14.6)
[2016-12-07] MEDS: FUROSEMIDE 40MG/4ML VIAL IV SCH (06:45)
[2016-12-07] MEDS ORDERED: POTASSIUM CHLORIDE 20MEQ TABLET SR PO NR (08:03)
[2016-12-07] MEDS ORDERED: COLC0.6T66 PO (08:11)
[2016-12-07] MEDS ORDERED: COR12 PO (08:11)
[2016-12-07] MEDS ORDERED: APIX5TAB PO (08:11)
[2016-12-07] MEDS ORDERED: FAMO20TA8 PO (08:11)
[2016-12-07] MEDS ORDERED: METO2.5T14 PO (08:11)
[2016-12-07] MEDS ORDERED: LEVO125T8 PO (08:11)
[2016-12-07] MEDS ORDERED: FURO80TA3 PO (08:11)
[2016-12-07 08:22] VITALS: BP 103/74
[2016-12-07] MEDS: AMIODARONE HCL 200 MG TABLET PO SCH (08:23)
[2016-12-07] MEDS: CARVEDILOL 12.5MG TABLET PO SCH (08:23)
[2016-12-07] MEDS: METOLAZONE 2.5MG TABLET PO SCH (08:23)
[2016-12-07] MEDS: COLCHICINE 0.6MG TABLET PO SCH (08:23)
[2016-12-07] MEDS: LOSARTAN POTASSIUM 25 MG TABLET PO SCH (08:23)
[2016-12-07] MEDS: DOCUSATE SODIUM 100MG CAPSULE PO SCH (08:23)
[2016-12-07] MEDS: APIXABAN 5 MG TABLET PO SCH (08:23)
[2016-12-07] MEDS: ALLOPURINOL 300 MG TABLET PO SCH (08:24)
[2016-12-07 08:58] VITALS: BP 103/74
[2016-12-07] MEDS ORDERED: FAMOTIDINE 20MG TABLET PO SCH (09:00)
[2016-12-07 13:07] LABS: PRO INSULIN 19.4 pmol/L (0.0-10.0)
[2016-12-10 17:12] LABS: INSULIN AUTOANTIBODIES < 5.0 uU/mL (.)
[2016-12-14 13:12] LABS: INSULIN 15.9 uIU/mL (2.6-24.9)
== END 2016-12-07 12:05 | disposition home or self-care (01) | DRG 133 ==
LOC: ER 23:14 → 3WST 11-30 01:52 → ENRESERV 11-30 03:42
PROVIDERS: ADMIT Internal Medicine; ATTEND Internal Medicine
PROC: B5181ZA Fluoroscopy of Superior Vena Cava using Low Osmolar Contrast, Guidance (ICD-10-PCS; principal; 2016-12-01)
PROC: 02HV33Z Insertion of Infusion Device into Superior Vena Cava, Percutaneous Approach (ICD-10-PCS; 2016-12-01)
PROC: B548ZZA Ultrasonography of Superior Vena Cava, Guidance (ICD-10-PCS; 2016-12-01)
DX: J96.20 Acute and chronic respiratory failure, unspecified whether with hypoxia or hypercapnia (principal); I50.23 Acute on chronic systolic (congestive) heart failure; N17.9 Acute kidney failure, unspecified; I42.0 Dilated cardiomyopathy; E11.22 Type 2 diabetes mellitus with diabetic chronic kidney disease; R16.0 Hepatomegaly, not elsewhere classified; E11.649 Type 2 diabetes mellitus with hypoglycemia without coma; I13.0 Hypertensive heart and chronic kidney disease with heart failure and stage 1 through stage 4 chronic kidney disease, or unspecified chronic kidney disease; I27.2 Other secondary pulmonary hypertension; I48.91 Unspecified atrial fibrillation; R19.00 Intra-abdominal and pelvic swelling, mass and lump, unspecified site; E03.9 Hypothyroidism, unspecified; K76.1 Chronic passive congestion of liver; M10.9 Gout, unspecified; N18.9 Chronic kidney disease, unspecified; D64.9 Anemia, unspecified; D72.819 Decreased white blood cell count, unspecified; Z79.84 Long term (current) use of oral hypoglycemic drugs; Z82.49 Family history of ischemic heart disease and other diseases of the circulatory system; Z90.710 Acquired absence of both cervix and uterus; Z95.810 Presence of automatic (implantable) cardiac defibrillator; Z88.5 Allergy status to narcotic agent; Z79.899 Other long term (current) drug therapy
CPT/HCPCS: 36415; 36569; 71010; 76705; 76937; 80048; 80053; 80305; 82533; 82607; 82962; 83036; 83525; 83735; 83880; 83921; 84134; 84206; 84443; 84484; 84550; 84681; 85025; 85027; 85610; 86337; 86705; 86709; 86803; 87340; 93005; 96374; 96375; 99285; C1725; G0482; J1250; J1815; J1940; J2270; Q0163

== ENCOUNTER 2017-03-17 23:38 | Emergency (ER) | payer MEDICAID ==
[~2017-03-17] VITALS: Ht 160 cm; Wt 95.0 kg
[~2017-03-17 23:38] MED LIST changes: -ALLO300T2 PO; -AMIODARONE PO; +APIX5TAB PO; +ENTRESTO PO; +FAMO20TA8 PO; +METO2.5T14 PO
[2017-03-18 03:54] LABS: HEMATOCRIT 37.5 % (36.0-48.0); HEMOGLOBIN 12.2 g/dL (12.0-16.0); MEAN CORPUSCULAR HEMOGLOBIN 26.6 pg (28.0-32.0); MEAN CORPUSCULAR VOLUME 81.8 fL (81.0-99.0); PLATELET 165 x1000/uL (130-400); RED BLOOD CELL COUNT 4.58 mill/uL (4.2-5.4); RED CELL DISTRIBUTION WIDTH 20.3 % (11.6-14.6)
[2017-03-18 04:01] LABS: INR 1.3; PARTIAL THROMBOPLASTIN TIME 31.6 sec (23.4-31.0); PROTHROMBIN TIME 13.4 sec (9.4-11.6)
[2017-03-18 06:49] VITALS: BP 124/74
== END 2017-03-18 06:56 | disposition home or self-care (01) ==
LOC: ER 23:38
DX: G89.29 Other chronic pain (principal); M79.604 Pain in right leg; R60.0 Localized edema; E05.90 Thyrotoxicosis, unspecified without thyrotoxic crisis or storm; I11.0 Hypertensive heart disease with heart failure; I50.9 Heart failure, unspecified; E11.9 Type 2 diabetes mellitus without complications; Z79.01 Long term (current) use of anticoagulants
CPT/HCPCS: 36415; 80048; 85027; 85610; 85730; 93970; 99285; Z7610

== ENCOUNTER 2017-04-17 19:27 | Inpatient (IN) | payer MEDICAID ==
[~2017-04-17] VITALS: Ht 160 cm; Wt 92.5 kg
[2017-04-17] MEDS ORDERED: ASPIRIN 81MG TABLET PO STA (22:46)
[2017-04-17] MEDS ORDERED: FUROSEMIDE 40MG/4ML VIAL IV STA (22:46)
[2017-04-17 23:41] LABS: HEMOGLOBIN. 12.8 g/dL (12.0-16.0); MEAN CORPUSCULAR HEMOGLOBIN 26.3 pg (28.0-32.0); MEAN CORPUSCULAR VOLUME 82.4 fL (81.0-99.0); MEAN PLATELET VOLUME 10.1 fl (7.4-10.4); PLATELET 179 x1000/uL (130-400); RED BLOOD CELL COUNT 4.85 mill/uL (4.2-5.4); RED CELL DISTRIBUTION WIDTH 19.4 % (11.6-14.6)
[2017-04-17 23:54] LABS: CARBON DIOXIDE 27 mEq/L (21-32); CHLORIDE 98 mEq/L (98-107); TROPONIN I < 0.02 ng/mL (0.00-0.04)
[2017-04-17 23:57] LABS: INR 1.2; PARTIAL THROMBOPLASTIN TIME 29.6 sec (23.4-31.0); PROTHROMBIN TIME 12.9 sec (9.4-11.6)
[2017-04-18 00:11] LABS: ATYPICAL LYMPHOCYTES 1; PLATELET ESTIMATE NORMAL
[2017-04-18] MEDS ORDERED: KETOROLAC 15MG/ML VIAL IV ONE (00:15)
[2017-04-18] MEDS ORDERED: MORPHINE SULFATE 2 MG/ML CPJ (NOT FOR IM USE) IV ONE (00:45)
[2017-04-18] MEDS ORDERED: DIPHENHYDRAMINE 25MG CAPSULE PO ONE (00:45)
[2017-04-18] MEDS ORDERED: DIPHENHYDRAMINE 50MG/ML VIAL IV SCH (02:45)
[2017-04-18] MEDS ORDERED: HYDROMORPHONE HCL/PF 1MG/ML CPJ IV SCH (02:45)
[2017-04-18 09:45] VITALS: BP 99/57
[2017-04-18 09:55] VITALS: BP 99/57
[2017-04-18] MEDS ORDERED: FUROSEMIDE 40MG/4ML VIAL IVP SCH (10:30)
[2017-04-18] MEDS ORDERED: MORPHINE SULFATE 4 MG/ML CPJ (NOT FOR IM USE) IV PRN ×2 (11:00→17:00)
[2017-04-18] MEDS ORDERED: HYDROCODONE/ACETAMINOPHEN 5/325MG TABLET PO PRN (11:00)
[2017-04-18] MEDS ORDERED: ACETAMINOPHEN 325MG TABLET PO PRN (11:45)
[2017-04-18 12:00] VITALS: BP 109/67
[2017-04-18] MEDS ORDERED: SACU1TAB7 PO (12:43)
[2017-04-18] MEDS ORDERED: APIX5TAB PO (12:43)
[2017-04-18] MEDS: APIXABAN 5 MG TABLET PO SCH ×2 (14:44→18:52)
[2017-04-18] MEDS: FUROSEMIDE 40MG TABLET PO SCH ×2 (14:44→18:52)
[2017-04-18 16:00] VITALS: BP 119/80
[2017-04-18 20:00] VITALS: BP 107/71
[2017-04-18] MEDS: CARVEDILOL 12.5MG TABLET PO SCH (20:47)
[2017-04-19] VITALS: BP 114/81
[2017-04-19 04:00] VITALS: BP 116/67
[2017-04-19] MEDS: FUROSEMIDE 40MG TABLET PO SCH (07:35)
[2017-04-19 08:30] VITALS: BP 123/85
[2017-04-19] MEDS ORDERED: METOLAZONE 2.5MG TABLET PO SCH (09:00)
[2017-04-19] MEDS: CARVEDILOL 12.5MG TABLET PO SCH (09:20)
[2017-04-19] MEDS: APIXABAN 5 MG TABLET PO SCH (09:20)
[2017-04-19 12:00] VITALS: BP 100/59
[2017-04-19 13:17] VITALS: BP 100/59
== END 2017-04-19 14:12 | disposition home or self-care (01) | DRG 194 ==
LOC: ER 19:27 → 7WST 04-18 00:47 → EDBEDREQTM 04-18 00:51 → EDBEDREQ 04-18 00:51 → EDBEDREQDT 04-18 00:51 → ENRESERV 04-18 07:38
PROVIDERS: ADMIT Internal Medicine; ATTEND Internal Medicine
PROC: 4B02XTZ Measurement of Cardiac Defibrillator, External Approach (ICD-10-PCS; principal; 2017-04-18)
DX: I13.0 Hypertensive heart and chronic kidney disease with heart failure and stage 1 through stage 4 chronic kidney disease, or unspecified chronic kidney disease (principal); N17.9 Acute kidney failure, unspecified; I42.0 Dilated cardiomyopathy; E11.22 Type 2 diabetes mellitus with diabetic chronic kidney disease; E87.1 Hypo-osmolality and hyponatremia; I50.23 Acute on chronic systolic (congestive) heart failure; Y71.2 Prosthetic and other implants, materials and accessory cardiovascular devices associated with adverse incidents; E03.9 Hypothyroidism, unspecified; E66.9 Obesity, unspecified; I08.1 Rheumatic disorders of both mitral and tricuspid valves; I27.20 Pulmonary hypertension, unspecified; I48.0 Paroxysmal atrial fibrillation; M10.9 Gout, unspecified; N18.9 Chronic kidney disease, unspecified; Z90.710 Acquired absence of both cervix and uterus; Z95.810 Presence of automatic (implantable) cardiac defibrillator; Z98.891 History of uterine scar from previous surgery; Z79.899 Other long term (current) drug therapy; Z79.01 Long term (current) use of anticoagulants; Z68.36 Body mass index [BMI] 36.0-36.9, adult
CPT/HCPCS: 36415; 71045; 80053; 82962; 83690; 83880; 84484; 85025; 85610; 85730; 93005; 96374; 96375; 99285; J1170; J1200; J1885; J1940; J2270; Q0163